=== PATIENT | male | born 1970 | race African-American/Black ===

== ENCOUNTER 2021-09-25 04:27 | Day surgery (SDC) | payer OTHER ==
[2021-09-22 12:47] VITALS: BMI 28.8
[~2021-09-25 04:27] MED LIST: BUPIVACAINE HCL/PF 0.5% (5MG/ML) 10 ML VIAL IJ ONE; LIDOCAINE HCL 1%, 10 MG/ML (20ML VIAL) NR ONE
[2021-09-25] MEDS ORDERED: ceFAZolin SODIUM 1 GM VIAL IVPB ONE (08:48)
[2021-09-25] MEDS ORDERED: LIDOCAINE HCL 1%, 10 MG/ML (20ML VIAL) NR ONE (08:51)
[2021-09-25] MEDS ORDERED: BUPIVACAINE HCL/PF 0.5% (5MG/ML) 10 ML VIAL IJ ONE (08:51)
[2021-09-25 13:02] VITALS: BP 130/70; PULSE 58; TEMP 97.8
== END 2021-09-25 12:15 | disposition home or self-care (01) ==
LOC: JASU-SURG 04:27
PROVIDERS: ATTEND Podiatrist
PROC: 0SNP0ZZ Release Right Toe Phalangeal Joint, Open Approach (ICD-10-PCS; 2021-09-25)
PROC: 0SNQ0ZZ Release Left Toe Phalangeal Joint, Open Approach (ICD-10-PCS; principal; 2021-09-25 08:40)
DX: M20.42 Other hammer toe(s) (acquired), left foot (principal); M20.41 Other hammer toe(s) (acquired), right foot
CPT/HCPCS: 73630-TC-LT; 73630-TC-RT-FY; 88304-TC; 88311-TC